=== PATIENT | female | born 1935 | race Two or more races ===

== ENCOUNTER 2019-07-01 14:14 | Outpatient (CLI) | payer MEDICARE ==
[~2019-07-01] VITALS: Ht 157.5 cm; Wt 47.2 kg
--- NOTE | 2019-07-01 14:52 | General Progress Note ---
Assessment/Plan Assessment/Plan: dysphagia s/p GT improving VAS RTC after above Subjective ROS Limited/Unobtainable: Yes Objective General Appearance: alert EENT: normal ENT inspection Neck: supple Cardiovascular: normal rate Respiratory/Chest: lungs clear Abdomen: normal bowel sounds, non tender, soft Extremities: non-tender Joni Monk MD Jul 01, 2019 14:52
[2019-07-01 15:55] VITALS: BP 104/76
[2019-07-02] MEDS ORDERED: HYDRALAZINE HC100 MG GT (13:04)
[2019-07-02] MEDS ORDERED: ATIVAN0.5 MG GT (13:04)
[2019-07-02] MEDS ORDERED: ASPIRIN EC81 MG GT (13:04)
[2019-07-02] MEDS ORDERED: DULCOLAX10 MG RC (13:04)
[2019-07-02] MEDS ORDERED: ESCITALOPRAM OX10 MG GT (13:04)
[2019-07-02] MEDS ORDERED: ACETAMINOP160 MG/5 M GT (13:04)
[2019-07-02] MEDS ORDERED: FUROSEMIDE20 M1 GT (13:04)
[2019-07-02] MEDS ORDERED: LISINOPRIL5 MG GT (13:04)
[2019-07-02] MEDS ORDERED: PACERONE200 MG GT (13:04)
[2019-07-02] MEDS ORDERED: FLEET ENEMA133 ML RECTAL (13:04)
== END 2019-07-01 16:14 | disposition home or self-care (01) ==
LOC: PAN 14:14
DX: R13.10 Dysphagia, unspecified (principal); Z93.1 Gastrostomy status
CPT/HCPCS: G0463